=== PATIENT | male | born 1945 | race Caucasian/White ===

== ENCOUNTER 2020-05-16 07:06 | Outpatient (REF) | payer MEDICARE, OTHER, SELFPAY | END 2020-05-16 07:07 | disposition home or self-care (01) | LOC: HO.LAB 07:06 | PROVIDERS: Visit Provider Internal Medicine | DX: Z20.828 Contact with and (suspected) exposure to other viral communicable diseases (principal) | CPT/HCPCS: 36415; 87635 ==

== ENCOUNTER 2020-06-30 06:18 | Outpatient (REF) | payer MEDICARE, OTHER, SELFPAY | END 2020-06-30 06:19 | disposition home or self-care (01) | LOC: HO.LAB 06:18 | PROVIDERS: Visit Provider Internal Medicine | DX: Z20.828 Contact with and (suspected) exposure to other viral communicable diseases (principal) | CPT/HCPCS: C9803; U0003 ==